=== PATIENT | male | born 1965 | race Caucasian/White ===

== ENCOUNTER 2017-06-27 09:18 | Emergency (ER) | payer SELFPAY ==
[2017-06-27 09:34] VITALS: RESP 12
--- NOTE | 2017-06-27 09:37 | EDPHY ---
H & P Stated Complaint: Dizzy, Blurred Vision, Tingling in fingers Time Seen by Provider: 06/27/17 09:35 HPI/ROS: Chief Complaint: Dizzy, lightheaded, tingling in fingers HPI: 51-year-old English-speaking male presenting with an episode of dizziness and lightheadedness and tingling in his fingers. This occurred yesterday while he was shoveling the snow at the top of his car. He is presenting today because he has had several of these episodes in the last couple of years and wanted to check up. Has not had any symptoms since yesterday. Did not have any chest pain or shortness of breath. No nausea or vomiting. No headache. Has a history of a head injury years ago is when he struck his head on a bridge but has not had any recurrent symptoms from that. Has had a little bit of weight loss of about 10 lb because he has not been eating as much. No weight gain. No increased thirst and urination. No fevers or chills. No cold or heat intolerance. No headache. His symptoms lasted very briefly and then went away. No fainting or near syncope. ROS: 10 point Review of Systems is negative except as noted in the HPI. PMH: Denies Social History: No smoking, occasional alcohol, no recreational drug use Family History: No family history of coronary artery disease or hypertension or diabetes Physical Exam: Gen: Awake, Alert, No Distress HEENT: Nose: no rhinorrhea Eyes: PERRLA, EOMI Mouth: Moist mucosa Neck: Supple, no JVD Chest: nontender, lungs clear to auscultation Heart: S1, S2 normal, no murmur Abd: Soft, non-tender, no guarding Back: no CVA tenderness, no midline tenderness Ext: no edema, non-tender Skin: no rash Neuro: CN II-XII intact, Sensation grossly intact, Strength 5/5 in bilateral upper and lower extremities - Personal History Current Tetanus Diphtheria and Acellular Pertussis (TDAP): No - Medical/Surgical History Hx Asthma: No Hx Chronic Respiratory Disease: No Hx Diabetes: No Hx Cardiac Disease: No Hx Renal Disease: No Hx Cirrhosis: No Hx Alcoholism: No Hx HIV/AIDS: No Hx Splenectomy or Spleen Trauma: No - Social History Smoking Status: Never smoked Constitutional: Initial Vital Signs Temperature (C) 36.9 C 06/27/17 09:26 Heart Rate 78 06/27/17 09:26 Respiratory Rate 12 06/27/17 09:26 Blood Pressure 171/124 H 06/27/17 09:26 O2 Sat (%) 98 06/27/17 09:26 O2 Delivery Mode Room Air Allergies/Adverse Reactions: No Known Allergies Allergy (Unverified 06/27/17 09:35) Home Medications: Medication Instructions Recorded NK [No Known Home Meds] 06/27/17 Medical Decision Making ED Course/Re-evaluation: Healthy-appearing 51-year-old male with an episode of lightheadedness while shoveling his car yesterday. This was brief. He is moderately hypertensive here with no other acute exam findings. He is otherwise healthy. No symptomatology to suggest CVA, cardiac arrhythmia, metabolic disorder, or other acute emergent process. Patient certainly needs to be followed up in the clinic for recheck his blood pressure and further care. He has not seen a physician for several years. There is no evidence of acute medical problem at this time however. He is comfortable has no complaints today. Will discharge with follow-up at [facility], return for any worsening symptoms. Departure - Departure Disposition: Home, Routine, Self-Care Clinical Impression: Hypertension Condition: Good Instructions: Hypertension (ED) Additional Instructions: Follow up at [facility] in 2-3 days for blood pressure recheck and further evaluation. Referrals: [facility],. [Clinic] - As per Instructions
[2017-06-27 09:49] VITALS: O2SAT 94
[2017-06-27 10:12] VITALS: BP 122/90; PULSE 77; TEMP 97.9
== END 2017-06-27 10:10 | disposition home or self-care (01) ==
LOC: CED 09:18
DX: I10 Essential (primary) hypertension (principal)